=== PATIENT | female | born 1990 | race Caucasian/White ===

== ENCOUNTER 2017-10-28 11:56 | Inpatient (IN) | payer BC ==
[2017-10-28] MEDS ORDERED: Misoprostol 200 MCG Tab PO PRN (12:30)
[2017-10-28] MEDS ORDERED: Lidocaine 1% 50 ML MDV INJECT PRN (12:30)
[2017-10-28] MEDS ORDERED: Methylergonovine 0.2 MG/1 ML Amp IM PRN (12:30)
[2017-10-28] MEDS ORDERED: Sodium Chloride 0.9% 2.5 ML Syringe FLUSH PRN (12:30)
[2017-10-28] MEDS ORDERED: Sodium Chloride 0.9% 10 ML Syringe FLUSH PRN (12:30)
[2017-10-28] MEDS ORDERED: Butorphanol 1 MG/ML SDV IVPUSH PRN (12:30)
[2017-10-28] MEDS ORDERED: Carboprost Tromethamine 250 MCG/1 ML Amp IM PRN (12:30)
[2017-10-28] MEDS ORDERED: Water For Irrigation,Sterile 1,000 ML Container IRR PRN (12:30)
[2017-10-28] MEDS ORDERED: Oxytocin/0.9 % Sodium Chloride 30 UNIT/500 ML BAG IV SCH ×2 (12:30→12:45)
[2017-10-28] MEDS ORDERED: Nalbuphine 10 MG/1 ML Vial IVPUSH PRN (12:30)
[2017-10-28] MEDS ORDERED: Misoprostol 50 MCG (1/2 of 100 MCG) Tab VAG SCH (12:45)
[2017-10-28] MEDS: Lactated Ringers 1,000 ML IV SCH ×2 (13:39→18:57)
[2017-10-28 13:43] LABS: CHLORIDE,CL 108 mmol/L (98-110); SODIUM,NA 137 mmol/L (136-146)
[2017-10-28] MEDS: Misoprostol 25 MCG (1/4 of 100 MCG) Tab VAG SCH ×2 (13:55→18:03)
[2017-10-29] MEDS ORDERED: Ondansetron 4 MG/2 ML SDV IVPUSH PRN (00:04)
[2017-10-29] MEDS ORDERED: Ondansetron 4 MG/2 ML SDV ONE (00:11)
[2017-10-29] MEDS: Lactated Ringers 1,000 ML IV SCH ×5 (01:02→08:42)
[2017-10-29] MEDS ORDERED: Ropivacaine HCl/PF 100 ML ONE (02:12)
[2017-10-29] MEDS ORDERED: fentaNYL 100 MCG/2 ML SDV ONE ×3 (02:12→12:15)
[2017-10-29] MEDS ORDERED: Terbutaline 1 MG/ML SDV ONE (02:54)
[2017-10-29] MEDS ORDERED: Terbutaline 1 MG/ML SDV SUBCUT ONE (02:55)
--- NOTE | 2017-10-29 03:32 | PCM.PREANE ---
Preanesthetic Assessment - Procedure Proposed Procedure: labor epidural - Anesthesia/Transfusion/Family Hx Anesthesia History: Prior Anesthesia Without Reaction Family History of Anesthesia Reaction: No Intubation History: Unknown - Review of Systems General: Other (labor) Pulmonary: No Symptoms Cardiovascular: No Symptoms Gastrointestinal: Other (GERD) Neurological: Other (labor paines) Other: Reports: Anxiety - Physical Assessment NPO Status Date: 10/28/17 NPO Status Time: 07:00 Height: 5 ft 6 in Weight: 155 lb ASA Class: 2 Mental Status: Alert & Oriented x3 Airway Class: Mallampati = 1 Dentition: Reports: Normal Dentition Thyro-Mental Finger Breadths: 3 Mouth Opening Finger Breadths: 3 ROM/Head Extension: Full Lungs: Clear to Auscultation, Normal Respiratory Effort Cardiovascular: Regular Rate, Regular Rhythm, No Murmurs - Lab Values: Laboratory Last Values WBC 10.58 K/uL (4.0-11.0) 10/28/17 13:07 RBC 4.14 M/uL (4.30-5.90) L 10/28/17 13:07 Hgb 12.5 g/dL (12.0-16.0) 10/28/17 13:07 Hct 36.5 % (36.0-46.0) 10/28/17 13:07 MCV 88.2 fL (80.0-98.0) 10/28/17 13:07 MCH 30.2 pg (27.0-32.0) 10/28/17 13:07 MCHC 34.2 g/dL (31.0-37.0) 10/28/17 13:07 RDW Std Deviation 43.7 fl (28.0-62.0) 10/28/17 13:07 RDW Coeff of Sonu 14 % (11.0-15.0) 10/28/17 13:07 Plt Count 265 K/uL (150-400) 10/28/17 13:07 MPV 10.60 fL (7.40-12.00) 10/28/17 13:07 Nucleated RBC % 0.0 /100WBC 10/28/17 13:07 Nucleated RBCs # 0 K/uL 10/28/17 13:07 APTT 25.8 SEC (18.6-31.3) 10/28/17 13:07 Sodium 137 mmol/L (136-146) 10/28/17 13:07 Potassium 3.8 mmol/L (3.5-5.1) 10/28/17 13:07 Chloride 108 mmol/L (98-110) 10/28/17 13:07 Carbon Dioxide 18 mmol/L (21-31) L 10/28/17 13:07 BUN 11 mg/dL (6.0-23.0) 10/28/17 13:07 Creatinine 0.7 mg/dL (0.6-1.5) 10/28/17 13:07 Est Cr Clr Drug Dosing 113.01 mL/min 10/28/17 13:07 Estimated GFR (MDRD) > 60.0 ml/min 10/28/17 13:07 Glucose 77 mg/dL (60-110) 10/28/17 13:07 Uric Acid 5.2 mg/dL (2.1-6.2) 10/28/17 13:07 Calcium 9.6 mg/dL (8.8-10.8) 10/28/17 13:07 Total Bilirubin 0.2 mg/dL (0.1-1.5) 10/28/17 13:07 AST 15 IU/L (5-40) 10/28/17 13:07 ALT 13 IU/L (8-54) 10/28/17 13:07 Alkaline Phosphatase 136 (40-150) 10/28/17 13:07 Total Protein 7.1 g/dL (6.0-8.0) 10/28/17 13:07 Albumin 3.7 g/dL (3.5-5.0) 10/28/17 13:07 Globulin 3.4 g/dL (2.0-3.5) 10/28/17 13:07 Albumin/Globulin Ratio 1.1 (1.3-2.8) L 10/28/17 13:07 Blood Type A POSITIVE 10/28/17 13:07 Antibody Screen NEGATIVE 10/28/17 13:07 - Allergies Allergies/Adverse Reactions: Allergies Allergy/AdvReac Type Severity Reaction Status Date / Time meclocycline Allergy Disorientat Verified 08/01/15 12:13 ion - Blood Blood Available: Yes Product(s) Available: PRBC (T and S) - Acknowledgements Anesthesia Type Planned: Epidural Pt an Appropriate Candidate for the Planned Anesthesia: Yes Alternatives and Risks of Anesthesia Discussed w Pt/Guardian: Yes Pt/Guardian Understands and Agrees with Anesthesia Plan: Yes PreAnesthesia Questionnaire Other Gastrointestinal History: umbilical hernia [employer] History: Reports: Neurological History: Reports: Other (See Below) Other Neuro History: Narcolepsy Dermatologic History: Reports: Other (See Below) Other Dermatologic History: premelanoma 2010 - Past Surgical History Dermatological Surgical History: Reports: Other (See Below) - SUBSTANCE USE Smoking Status *Q: Never Smoker Second Hand Smoke Exposure: No Recreational Drug Use History: No - HOME MEDS Home Medications: Home Meds L.acidoph,Paracasei, B.lactis [Probiotic] 1 each PO DAILY 08/01/15 [History] Norethindrone AC-Eth Estradiol [Junel] 1 each PO DAILY 08/01/15 [History] - CURRENT (IN HOUSE) MEDS Current Meds: Current Medications Butorphanol Tartrate (Stadol) 1 mg IVPUSH Q1H PRN PRN Reason: Pain Last Admin: 10/28/17 23:23 Dose: 1 mg Carboprost Tromethamine (Hemabate Ds) 250 mcg IM ASDIRECTED PRN PRN Reason: Post Hemorrhage Lactated Ringer's (Ringers, Lactated) 1,000 mls @ 150 mls/hr IV ASDIRECTED RIO Last Admin: 10/29/17 03:16 Dose: 999 mls/hr Oxytocin/Sodium Chloride (Oxytocin 30 Unit/500 Ml-Ns) 30 unit in 500 mls @ 500 mls/hr IV TITRATE RIO Oxytocin/Sodium Chloride (Oxytocin 30 Unit/500 Ml-Ns) 30 unit in 500 mls @ 2 mls/hr IV TITRATE RIO; 2 MUNITS/MIN PRN Reason: Protocol Lidocaine HCl (Xylocaine 1%) 50 ml INJECT .ONCE PRN PRN Reason: Laceration repair Methylergonovine Maleate (Methergine) 0.2 mg IM ASDIRECTED PRN PRN Reason: Post Hemorrhage Misoprostol (Cytotec) 200 mcg PO .ONCE PRN PRN Reason: Post Hemorrhage Misoprostol (Cytotec) 25 mcg VAG Q4H RIO Last Admin: 10/28/17 18:03 Dose: 25 mcg Nalbuphine HCl (Nubain) 10 mg IVPUSH Q1H PRN PRN Reason: Pain (severe 7-10) Ondansetron HCl (Zofran) 4 mg IVPUSH Q6H PRN PRN Reason: Nausea/Vomiting Last Admin: 10/29/17 00:15 Dose: 4 mg Sodium Chloride (Saline Flush) 10 ml FLUSH ASDIRECTED PRN PRN Reason: Keep Vein Open Sodium Chloride (Saline Flush) 2.5 ml FLUSH ASDIRECTED PRN PRN Reason: Keep Vein Open Sterile Water (Sterile Water For Irrigation) 1,000 ml IRR ASDIRECTED PRN PRN Reason: delivery Discontinued Medications Fentanyl (Sublimaze) Confirm Administered Dose 100 mcg .ROUTE .STK-MED ONE Stop: 10/29/17 02:13 Ropivacaine (Naropin 0.2%) Confirm Administered Dose 100 mls @ as directed .ROUTE .STK-MED ONE Stop: 10/29/17 02:13 Misoprostol (Cytotec) 25 mcg VAG Q4H RIO Ondansetron HCl (Zofran) Confirm Administered Dose 4 mg .ROUTE .STK-MED ONE Stop: 10/29/17 00:12 Terbutaline Sulfate (Brethine) Confirm Administered Dose 1 mg .ROUTE .STK-MED ONE Stop: 10/29/17 02:55 Terbutaline Sulfate (Brethine) 0.25 mg SUBCUT ONETIME ONE Stop: 10/29/17 02:56 Last Admin: 10/29/17 03:00 Dose: 0.25 mg
[2017-10-29] MEDS ORDERED: ceFAZolin 2 GM in Premix Bag 1 BAG IV ONE (09:31)
[2017-10-29] MEDS ORDERED: Citric Acid/Sodium Citrate Solution 30 ML Cup PO ONE (09:31)
[2017-10-29] MEDS ORDERED: Morphine PF 10 MG/10 ML SDV ONE (09:46)
[2017-10-29] MEDS ORDERED: Phenylephrine/Normal Saline 100 MCG/ML 10 ML Syringe ONE (09:47)
[2017-10-29] MEDS ORDERED: ePHEDrine 50 MG/ML SDV ONE (09:47)
[2017-10-29] MEDS ORDERED: Oxytocin 10 Units/1 ML SDV ONE ×2 (09:50→09:51)
[2017-10-29] MEDS ORDERED: Bupivacaine 0.5% 30 ML SDV ONE (09:53)
[2017-10-29] MEDS ORDERED: Propofol 200 MG/20 ML SDV ONE (10:36)
[2017-10-29] MEDS ORDERED: Methylergonovine 0.2 MG/1 ML Amp ONE (10:45)
[2017-10-29] MEDS ORDERED: Naloxone 0.4 MG/ML Syringe IVPUSH PRN (11:59)
[2017-10-29] MEDS ORDERED: Acetaminophen/oxyCODONE 325-5 MG Tab PO PRN ×2 (12:07→12:20)
--- NOTE | 2017-10-29 12:14 | PCM.POSTAN ---
POST ANESTHESIA ASSESSMENT - MENTAL STATUS Mental Status: Alert, Oriented - VITAL SIGNS Pulse Rate: 120 (consistent with preop records and vitals) SaO2: 98 (RA) Resp Rate: 16 Blood Pressure: 143/80 - RESPIRATORY Respiratory Status: Respiratory Rate WNL, Airway Patent, O2 Saturation Stable - CARDIOVASCULAR CV Status: Pulse Rate WNL, Blood Pressure Stable - GASTROINTESTINAL GI Status: No Symptoms - POST OP HYDRATION Hydration Status: Adequate & Stable
[2017-10-29] MEDS: fentaNYL 100 MCG/2 ML SDV IVPUSH SCH ×2 (12:16→17:14)
--- NOTE | 2017-10-29 12:18 | PCM.OPNOTE ---
- General Post-Op/Procedure Note Date of Surgery/Procedure: 10/29/17 Operative Procedure(s): Primary Lower transverse Findings: Live male delivered at 1039am , 6/9 weight 2990g Pre Op Diagnosis: @ 39w1 d for IOL secondary to Gestational HTN. Cat 2 FHT Post-Op Diagnosis: same Anesthesia Technique: Epidural Primary Surgeon: Miley Red Anesthesia Provider: Jeffrey Menon Fluid Replacement, Intraop: 1,900 Output, Urine Amount: 600 EBL in mLs: 800 Condition: Good
[2017-10-29] MEDS ORDERED: diphenhydrAMINE 50 MG/ML SDV IVPUSH PRN (12:20)
[2017-10-29] MEDS ORDERED: Ondansetron 4 MG/2 ML SDV IV PRN (12:20)
[2017-10-29] MEDS ORDERED: Lanolin 100% Cream 7 GM Tube TOP PRN (12:20)
[2017-10-29] MEDS ORDERED: Bisacodyl 10 MG Supp RECTAL PRN (12:20)
[2017-10-29] MEDS ORDERED: Lactated Ringers 1,000 ML IV SCH (12:30)
[2017-10-29] MEDS: Ketorolac 30 MG/ML SDV IVPUSH SCH ×2 (13:01→19:03)
[2017-10-29] MEDS ORDERED: Witch Hazel Medicated Pads 40/Jar TOP PRN (17:03)
[2017-10-29] MEDS ORDERED: Benzocaine/Menthol 20%-0.5% Spray 78 GM Cannister TOP PRN (17:04)
[2017-10-29] MEDS: Misoprostol 25 MCG (1/4 of 100 MCG) Tab VAG SCH (17:05)
[2017-10-30] MEDS: Ketorolac 30 MG/ML SDV IVPUSH SCH ×3 (00:39→12:26)
--- NOTE | 2017-10-30 08:16 | PCM.PNPP ---
- General Info Date of Service: 10/30/17 Admission Dx/Problem (Free Text): 27 yo P1 s/p Primary LTCS for Cat 2FHT Subjective Update: Patient seen at bedside ,denies any complains, pain control good , [place] out @ 5am this am, Tolerating regular diet Ambulating , yet to void Functional Status: Reports: Pain Controlled, Tolerating Diet, Ambulating, Incentive Spirometry - Review of Systems General: Reports: No Symptoms HEENT: Reports: No Symptoms Pulmonary: Reports: No Symptoms Cardiovascular: Reports: No Symptoms Gastrointestinal: Reports: No Symptoms Genitourinary: Reports: No Symptoms Musculoskeletal: Reports: No Symptoms Skin: Reports: No Symptoms Neurological: Reports: No Symptoms Psychiatric: Reports: No Symptoms - General Info Date of Service: 10/30/17 - Patient Data Vital Signs - Most Recent: Last Vital Signs Temp 36.6 C 10/30/17 05:30 Pulse 94 10/30/17 06:30 Resp 15 10/30/17 06:30 BP 119/69 10/30/17 05:30 Pulse Ox 98 10/30/17 06:30 Weight - Most Recent: 70.307 kg I&O - Last 24 Hours: Intake & Output 10/29/17 10/30/17 10/30/17 22:59 06:59 14:59 Output Total 1100 3050 Balance -1100 -3050 Lab Results - Last 24 Hours: Laboratory Results - last 24 hr 10/30/17 Range/Units 05:51 Hgb 8.4 L (12.0-16.0) g/dL Hct 25.6 L (36.0-46.0) % Med Orders - Current: Current Medications Benzocaine/Menthol (Dermoplast Pain Relief 20%-0.5% [place]) 0 gm TOP ASDIRECTED PRN PRN Reason: Last Admin: 10/29/17 17:13 Dose: 1 canister Bisacodyl (Dulcolax) 10 mg RECTAL .ONCE PRN PRN Reason: Constipation Carboprost Tromethamine (Hemabate Ds) 250 mcg IM ASDIRECTED PRN PRN Reason: Post Hemorrhage Diphenhydramine HCl (Benadryl) 25 mg IVPUSH Q6H PRN PRN Reason: Itching or Nausea Docusate Sodium (Colace) 100 mg PO BID RIO Emollient Ointment (Lansinoh Hpa) 0 gm TOP ASDIRECTED PRN PRN Reason: Sore Nipples Last Admin: 10/29/17 17:14 Dose: 1 tube Fentanyl (Sublimaze) 100 mcg IVPUSH ONETIME [facility] Last Admin: 10/29/17 17:14 Dose: 100 mcg Lactated Ringer's (Ringers, Lactated) 1,000 mls @ 150 mls/hr IV ASDIRECTED [facility] Last Admin: 10/29/17 08:42 Dose: 500 mls/hr Lactated Ringer's (Ringers, Lactated) 1,000 mls @ 125 mls/hr IV ASDIRECTED [facility] Last Admin: 10/29/17 13:07 Dose: 125 mls/hr Ibuprofen (Motrin) 800 mg PO Q8H PRN PRN Reason: mild pain or fever Ketorolac Tromethamine (Toradol) 30 mg IVPUSH Q6H [facility] Stop: 10/30/17 12:31 Last Admin: 10/30/17 06:41 Dose: 30 mg Methylergonovine Maleate (Methergine) 0.2 mg IM ASDIRECTED PRN PRN Reason: Post Hemorrhage Misoprostol (Cytotec) 200 mcg PO .ONCE PRN PRN Reason: Post Hemorrhage Naloxone HCl (Narcan) 0.1 mg IVPUSH ONETIME PRN PRN Reason: Respiratory Depression Stop: 10/30/17 11:59 Ondansetron HCl (Zofran) 4 mg IVPUSH Q6H PRN PRN Reason: Nausea/Vomiting Last Admin: 10/29/17 00:15 Dose: 4 mg Ondansetron HCl (Zofran) 4 mg IV Q4H PRN PRN Reason: Nausea/Vomiting Oxycodone/Acetaminophen (Percocet 325-5 Mg) 1 tab PO Q4H PRN PRN Reason: Breakthrough Pain Oxycodone/Acetaminophen (Percocet 325-5 Mg) 1 tab PO Q4H PRN PRN Reason: Pain (moderate 4-6) Oxycodone/Acetaminophen (Percocet 325-5 Mg) 2 tab PO Q4H PRN PRN Reason: Pain (moderate 4-6) Sodium Chloride (Saline Flush) 10 ml FLUSH ASDIRECTED PRN PRN Reason: Keep Vein Open Sodium Chloride (Saline Flush) 2.5 ml FLUSH ASDIRECTED PRN PRN Reason: Keep Vein Open Lisa Tucker (Tucks) 1 pad TOP ASDIRECTED PRN PRN Reason: Last Admin: 10/29/17 17:13 Dose: 1 tub Discontinued Medications Bupivacaine HCl (Marcaine 0.5%) Confirm Administered Dose 30 ml .ROUTE .STK-MED ONE Stop: 10/29/17 09:54 Butorphanol Tartrate (Stadol) 1 mg IVPUSH Q1H PRN PRN Reason: Pain Last Admin: 10/28/17 23:23 Dose: 1 mg Citric Acid/Sodium Citrate (Bicitra Solution) 30 ml PO ONETIME ONE Stop: 10/29/17 09:32 Last Admin: 10/29/17 09:50 Dose: 30 ml Ephedrine Sulfate (Ephedrine Sulfate) Confirm Administered Dose 50 mg .ROUTE .STK-MED ONE Stop: 10/29/17 09:48 Fentanyl (Sublimaze) Confirm Administered Dose 100 mcg .ROUTE .STK-MED ONE Stop: 10/29/17 02:13 Last Admin: 10/29/17 17:06 Dose: Not Given Fentanyl (Sublimaze) Confirm Administered Dose 100 mcg .ROUTE .STK-MED ONE Stop: 10/29/17 10:42 Fentanyl (Sublimaze) Confirm Administered Dose 100 mcg .ROUTE .STK-MED ONE Stop: 10/29/17 12:16 Last Admin: 10/29/17 17:06 Dose: Not Given Oxytocin/Sodium Chloride (Oxytocin 30 Unit/500 Ml-Ns) 30 unit in 500 mls @ 500 mls/hr IV TITRATE RIO Oxytocin/Sodium Chloride (Oxytocin 30 Unit/500 Ml-Ns) 30 unit in 500 mls @ 2 mls/hr IV TITRATE RIO; 2 MUNITS/MIN PRN Reason: Protocol Ropivacaine (Naropin 0.2%) Confirm Administered Dose 100 mls @ as directed .ROUTE .STK-MED ONE Stop: 10/29/17 02:13 Last Admin: 10/29/17 17:06 Dose: Not Given Cefazolin Sodium/Dextrose 2 gm (/ Premix) 50 mls @ 100 mls/hr IV ONETIME ONE Stop: 10/29/17 10:00 Last Admin: 10/29/17 09:49 Dose: 100 mls/hr Lidocaine HCl (Xylocaine 1%) 50 ml INJECT .ONCE PRN PRN Reason: Laceration repair Methylergonovine Maleate (Methergine) Confirm Administered Dose 0.2 mg .ROUTE .STK-MED ONE Stop: 10/29/17 10:46 Misoprostol (Cytotec) 25 mcg VAG Q4H RIO Misoprostol (Cytotec) 25 mcg VAG Q4H RIO Last Admin: 10/29/17 17:05 Dose: Not Given Morphine Sulfate (Duramorph Pf) Confirm Administered Dose 10 mg .ROUTE .STK-MED ONE Stop: 10/29/17 09:47 Nalbuphine HCl (Nubain) 10 mg IVPUSH Q1H PRN PRN Reason: Itching Ondansetron HCl (Zofran) Confirm Administered Dose 4 mg .ROUTE .STK-MED ONE Stop: 10/29/17 00:12 Last Admin: 10/29/17 17:06 Dose: Not Given Oxytocin (Pitocin) Confirm Administered Dose 10 unit .ROUTE .STK-MED ONE Stop: 10/29/17 09:51 Oxytocin (Pitocin) Confirm Administered Dose 10 unit .ROUTE .STK-MED ONE Stop: 10/29/17 09:52 Phenylephrine HCl (Phenylephrine In Ns 100 Mcg/Ml) Confirm Administered Dose 1 mg .ROUTE .STK-MED ONE Stop: 10/29/17 09:48 Propofol (Diprivan 20 Ml) Confirm Administered Dose 200 mg .ROUTE .STK-MED ONE Stop: 10/29/17 10:37 Sterile Water (Sterile Water For Irrigation) 1,000 ml IRR ASDIRECTED PRN PRN Reason: delivery Terbutaline Sulfate (Brethine) Confirm Administered Dose 1 mg .ROUTE .STK-MED ONE Stop: 10/29/17 02:55 Last Admin: 10/29/17 17:06 Dose: Not Given Terbutaline Sulfate (Brethine) 0.25 mg SUBCUT ONETIME ONE Stop: 10/29/17 02:56 Last Admin: 10/29/17 03:00 Dose: 0.25 mg - Interaction Infant Disposition, : in Room with Family Feeding: Breastfed Infant; Nursed Well - Recovery Exam Fundal Tone: Firm Fundal Level: At Umbilicus Fundal Placement: Midline Lochia Amount: Small Lochia Color: Rubra/Red Perineum Description: Edematous Episiotomy/Laceration: None Bladder Status: Nonpalpable Urinary Elimination: Indwelling Catheter - Exam General: Alert, Oriented Lungs: Clear to Auscultation, Normal Respiratory Effort Cardiovascular: Regular Rate, Regular Rhythm GI/Abdominal Exam: Normal Bowel Sounds Extremities: No Pedal Edema Wound/Incisions: Healing Well - Problem List & Annotations (1) delivery delivered SNOMED Code(s): 344584959 Code(s): O82 - ENCOUNTER FOR DELIVERY WITHOUT INDICATION Status: Acute Current Visit: Yes - Problem List Review Problem List Initiated/Reviewed/Updated: Yes - My Orders Last 24 Hours: My Active Orders 10/29/17 12:20 Notify Provider Vital Signs [RC] ASDIRECTED Acetaminophen/oxyCODONE [Percocet 325-5 MG] 1 tab PO Q4H PRN Acetaminophen/oxyCODONE [Percocet 325-5 MG] 2 tab PO Q4H PRN Bisacodyl [Dulcolax] 10 mg RECTAL .ONCE PRN Lanolin [Lansinoh HPA] See Dose Instructions TOP ASDIRECTED PRN Ondansetron [Zofran] 4 mg IV Q4H PRN diphenhydrAMINE [Benadryl] 25 mg IVPUSH Q6H PRN 10/29/17 12:25 Patient Status [ADT] Routine Ambulate [RC] PER UNIT ROUTINE Antiembolic Devices [RC] PER UNIT ROUTINE Communication Order [RC] PER UNIT ROUTINE RT Incentive Spirometry [RC] Q2HWA Assess Lochia [WOMSER] Per Unit Routine Assess Uterine Involution [WOMSER] Per Unit Routine Breast Pump [WOMSER] Per Unit Routine Peripheral IV Discontinue [OM.PC] Routine Sequential Compression Device [OM.PC] Per Unit Routine 10/29/17 12:30 Ketorolac [Toradol] 30 mg IVPUSH Q6H Lactated Ringers [Ringers, Lactated] 1,000 ml IV ASDIRECTED 10/29/17 12:40 Notify Provider Intake and Out [RC] ASDIRECTED 10/29/17 17:03 Witch Caitlin [Tucks] 1 pad TOP ASDIRECTED PRN 10/29/17 17:04 Benzocaine/Menthol [Dermoplast Pain Relief 20%-0.5% [place]] See Dose Instructions TOP ASDIRECTED PRN 10/29/17 21:00 Docusate Sodium [Colace] 100 mg PO BID 10/29/17 Dinner Regular Diet [DIET] 10/30/17 18:30 Ibuprofen [Motrin] 800 mg PO Q8H PRN - Assessment Assessment:: 27 yo P1 s/p Primary LTCS POD 1 , stable , Minimal lochia , wound c/d/i - Plan Plan:: Pain control as needed Ambulate , Follow void Regular diet
--- NOTE | 2017-10-30 09:45 | PCM48HPAN ---
Post Anesthesia Note - EVALUATION WITHIN 48HRS OF ANESTHETIC Vital Signs in Normal Range: Yes Patient Participated in Evaluation: Yes Respiratory Function Stable: Yes Airway Patent: Yes Cardiovascular Function Stable: Yes Hydration Status Stable: Yes Pain Control Satisfactory: Yes (Used analgesics x2 during the night.) Nausea and Vomiting Control Satisfactory: Yes Mental Status Recovered: Yes
[2017-10-30] MEDS: Acetaminophen/oxyCODONE 325-5 MG Tab PO PRN (15:58)
[2017-10-30] MEDS: Docusate Sodium 100 MG Cap PO SCH ×3 (20:17→21:08)
[2017-10-30] MEDS: Misoprostol 25 MCG (1/4 of 100 MCG) Tab VAG SCH ×2 (20:20→20:21)
--- NOTE | 2017-10-30 21:52 | OR ---
DATE OF PROCEDURE: 10/29/2017 SURGEON:ROBERTA PAULINO PREOPERATIVE DIAGNOSIS: A 27-year-old, G1, P0, at 39 weeks 0 days by dates on 19, was admitted secondary to gestational hypertension. Persistent Cat 2FHT POST OPERATIVE DIAGNOSIS: 39w0d , Primary section for Cat 2FHT PROCEDURE: Primary Lower transverse FINDINGS: Live male delivered at 10:39 a.m. score was 6 and 9. Weight is 2990 g. 3VC IV FLUIDS: 1900. ESTIMATED BLOOD LOSS: 800. URINE OUTPUT: 600. INDICATION: She was 27-year-old, G1, P0, was 39 weeks 0 days. She was initially seen in the clinic 2 days ago, was found to have borderline blood pressures in the 130s over 80s. The patient was returned back to the hospital and to the clinic in 2 days and she had a blood pressure of 150/86. At this time, she had no headache or right upper quadrant pain. No blurring of vision. Based on the elevated blood pressure, the patient was counseled for induction of labor. The patient accepted for induction of labor and signed consent. Induction of labor was started with Cytotec. The patient received 2 doses of Cytotec and became 130, - 3. After Cytotec, the patient had CRB placed on traction, which came out at 4:08 a.m. After CRB, the patient was noted to be 4 cm dilated and artificial rupture of membrane was also done. An IUPC was placed with amnioinfusion started because the patient was noted to have variable decelerations to the 70s. Also, the patient was noted to have tachysystole and then had deep variable decelerations, and at this point, terbutaline was given. During the course, the patient was noted to have recurrent late decelerations. At this point, the patient was placed on left lateral position, oxygen was given. The patient still continued to have late decelerations, which was persistent. As a result of this, the patient was given the option for section for maternal and well being. The patient accepted and signed consent. DESCRIPTION OF PROCEDURE: The patient was taken to the operating room where she was placed in the dorsal supine position with a leftward tilt. The epidural anesthesia was topped off. A Pfannenstiel skin incision was made with a scalpel and carried down to the fascia with the Bovie. The fascia was incised and extended laterally with the the Burnett scissors and pickup with teeth. The fascia was grasped superiorly with a Prince clamp and dissected from the rectus muscle superiorly and inferiorly. The rectus muscle was down in the midline to the level of the pubic symphysis. The abdomen was entered in bluntly and to expose the bladder reflection, then the Abdirizak retractor was placed to help to retract. The bladder flap was created and the lower uterine incision was made, which was extended upwards and downwards. The head was elevated to the level of the incision and then with fundal pressure the head was delivered followed by the anterior and posterior shoulder. The cord was clamped and cut. The was handed over to the awaiting furnace installer. The placenta was then delivered with massage of the uterine fundus. The uterus was then cleaned with laparotomy sponges. The uterine incision was repaired in 2 layers. there was a slight extension in the left side, which was then repaired also with the uterine incision.Hemostasis was noted after the procedure. The peritoneum was closed. The fascia was also closed. The skin was closed with 3-0 Monocryl on a Abdirashid needle. All instruments and pad counts were correct x2. The patient was taken to the recovery room in stable condition. MICHAEL DELUCA /[id number]
[2017-10-31] MEDS: Ibuprofen 800 MG Tab PO PRN ×3 (01:21→19:56)
--- NOTE | 2017-10-31 05:33 | PCM.PNPP ---
- General Info Date of Service: 10/31/17 Admission Dx/Problem (Free Text): 27 yo P1 s/p Primary LTCS for Cat 2FHT , POD 2 Subjective Update: Patient seen at bedside ,denies any complains, pain control good ,voiding, Tolerating regular diet Ambulating , Functional Status: Reports: Pain Controlled, Tolerating Diet, Ambulating, Urinating - Review of Systems General: Reports: No Symptoms HEENT: Reports: No Symptoms Pulmonary: Reports: No Symptoms Cardiovascular: Reports: Orthopnea Gastrointestinal: Reports: No Symptoms Genitourinary: Reports: No Symptoms Musculoskeletal: Reports: No Symptoms Skin: Reports: No Symptoms Neurological: Reports: No Symptoms - General Info Date of Service: 10/31/17 - Patient Data Vital Signs - Most Recent: Last Vital Signs Temp 36.9 C 10/30/17 20:00 Pulse 108 H 10/30/17 20:00 Resp 18 10/30/17 20:00 BP 109/58 L 10/30/17 20:00 Pulse Ox 96 10/30/17 20:00 Weight - Most Recent: 70.307 kg Lab Results - Last 24 Hours: Laboratory Results - last 24 hr 10/30/17 Range/Units 05:51 Hgb 8.4 L (12.0-16.0) g/dL Hct 25.6 L (36.0-46.0) % Med Orders - Current: Current Medications Benzocaine/Menthol (Dermoplast Pain Relief 20%-0.5% [place]) 0 gm TOP ASDIRECTED PRN PRN Reason: Last Admin: 10/29/17 17:13 Dose: 1 canister Bisacodyl (Dulcolax) 10 mg RECTAL .ONCE PRN PRN Reason: Constipation Carboprost Tromethamine (Hemabate Ds) 250 mcg IM ASDIRECTED PRN PRN Reason: Post Hemorrhage Diphenhydramine HCl (Benadryl) 25 mg IVPUSH Q6H PRN PRN Reason: Itching or Nausea Docusate Sodium (Colace) 100 mg PO BID RIO Last Admin: 10/30/17 21:08 Dose: 100 mg Emollient Ointment (Lansinoh Hpa) 0 gm TOP ASDIRECTED PRN PRN Reason: Sore Nipples Last Admin: 10/29/17 17:14 Dose: 1 tube Fentanyl (Sublimaze) 100 mcg IVPUSH ONETIME RIO Last Admin: 10/29/17 17:14 Dose: 100 mcg Lactated Ringer's (Ringers, Lactated) 1,000 mls @ 150 mls/hr IV ASDIRECTED RIO Last Admin: 10/29/17 08:42 Dose: 500 mls/hr Lactated Ringer's (Ringers, Lactated) 1,000 mls @ 125 mls/hr IV ASDIRECTED [facility] Last Admin: 10/29/17 13:07 Dose: 125 mls/hr Ibuprofen (Motrin) 800 mg PO Q8H PRN PRN Reason: mild pain or fever Last Admin: 10/31/17 01:21 Dose: 800 mg Methylergonovine Maleate (Methergine) 0.2 mg IM ASDIRECTED PRN PRN Reason: Post Hemorrhage Misoprostol (Cytotec) 200 mcg PO .ONCE PRN PRN Reason: Post Hemorrhage Ondansetron HCl (Zofran) 4 mg IVPUSH Q6H PRN PRN Reason: Nausea/Vomiting Last Admin: 10/29/17 00:15 Dose: 4 mg Ondansetron HCl (Zofran) 4 mg IV Q4H PRN PRN Reason: Nausea/Vomiting Oxycodone/Acetaminophen (Percocet 325-5 Mg) 1 tab PO Q4H PRN PRN Reason: Breakthrough Pain Oxycodone/Acetaminophen (Percocet 325-5 Mg) 1 tab PO Q4H PRN PRN Reason: Pain (moderate 4-6) Last Admin: 10/30/17 15:58 Dose: 1 tab Oxycodone/Acetaminophen (Percocet 325-5 Mg) 2 tab PO Q4H PRN PRN Reason: Pain (moderate 4-6) Last Admin: 10/30/17 18:45 Dose: 2 tab Sodium Chloride (Saline Flush) 10 ml FLUSH ASDIRECTED PRN PRN Reason: Keep Vein Open Sodium Chloride (Saline Flush) 2.5 ml FLUSH ASDIRECTED PRN PRN Reason: Keep Vein Open Witch Caitlin (Tucks) 1 pad TOP ASDIRECTED PRN PRN Reason: Last Admin: 10/29/17 17:13 Dose: 1 tub Discontinued Medications Bupivacaine HCl (Marcaine 0.5%) Confirm Administered Dose 30 ml .ROUTE .[facility] ONE Stop: 10/29/17 09:54 Butorphanol Tartrate (Stadol) 1 mg IVPUSH Q1H PRN PRN Reason: Pain Last Admin: 10/28/17 23:23 Dose: 1 mg Citric Acid/Sodium Citrate (Bicitra Solution) 30 ml PO ONETIME ONE Stop: 10/29/17 09:32 Last Admin: 10/29/17 09:50 Dose: 30 ml Ephedrine Sulfate (Ephedrine Sulfate) Confirm Administered Dose 50 mg .ROUTE .STK-MED ONE Stop: 10/29/17 09:48 Fentanyl (Sublimaze) Confirm Administered Dose 100 mcg .ROUTE .STK-MED ONE Stop: 10/29/17 02:13 Last Admin: 10/29/17 17:06 Dose: Not Given Fentanyl (Sublimaze) Confirm Administered Dose 100 mcg .ROUTE .STK-MED ONE Stop: 10/29/17 10:42 Fentanyl (Sublimaze) Confirm Administered Dose 100 mcg .ROUTE .STK-MED ONE Stop: 10/29/17 12:16 Last Admin: 10/29/17 17:06 Dose: Not Given Oxytocin/Sodium Chloride (Oxytocin 30 Unit/500 Ml-Ns) 30 unit in 500 mls @ 500 mls/hr IV TITRATE RIO Oxytocin/Sodium Chloride (Oxytocin 30 Unit/500 Ml-Ns) 30 unit in 500 mls @ 2 mls/hr IV TITRATE RIO; 2 MUNITS/MIN PRN Reason: Protocol Ropivacaine (Naropin 0.2%) Confirm Administered Dose 100 mls @ as directed .ROUTE .STK-MED ONE Stop: 10/29/17 02:13 Last Admin: 10/29/17 17:06 Dose: Not Given Cefazolin Sodium/Dextrose 2 gm (/ Premix) 50 mls @ 100 mls/hr IV ONETIME ONE Stop: 10/29/17 10:00 Last Admin: 10/29/17 09:49 Dose: 100 mls/hr Ketorolac Tromethamine (Toradol) 30 mg IVPUSH Q6H RIO Stop: 10/30/17 12:31 Last Admin: 10/30/17 12:26 Dose: 30 mg Lidocaine HCl (Xylocaine 1%) 50 ml INJECT .ONCE PRN PRN Reason: Laceration repair Methylergonovine Maleate (Methergine) Confirm Administered Dose 0.2 mg .ROUTE .STK-MED ONE Stop: 10/29/17 10:46 Misoprostol (Cytotec) 25 mcg VAG Q4H RIO Misoprostol (Cytotec) 25 mcg VAG Q4H RIO Last Admin: 10/30/17 20:21 Dose: Not Given Morphine Sulfate (Duramorph Pf) Confirm Administered Dose 10 mg .ROUTE .STK-MED ONE Stop: 10/29/17 09:47 Nalbuphine HCl (Nubain) 10 mg IVPUSH Q1H PRN PRN Reason: Itching Naloxone HCl (Narcan) 0.1 mg IVPUSH ONETIME PRN PRN Reason: Respiratory Depression Stop: 10/30/17 11:59 Ondansetron HCl (Zofran) Confirm Administered Dose 4 mg .ROUTE .STK-MED ONE Stop: 10/29/17 00:12 Last Admin: 10/29/17 17:06 Dose: Not Given Oxytocin (Pitocin) Confirm Administered Dose 10 unit .ROUTE .STK-MED ONE Stop: 10/29/17 09:51 Oxytocin (Pitocin) Confirm Administered Dose 10 unit .ROUTE .STK-MED ONE Stop: 10/29/17 09:52 Phenylephrine HCl (Phenylephrine In Ns 100 Mcg/Ml) Confirm Administered Dose 1 mg .ROUTE .STK-MED ONE Stop: 10/29/17 09:48 Propofol (Diprivan 20 Ml) Confirm Administered Dose 200 mg .ROUTE .STK-MED ONE Stop: 10/29/17 10:37 Sterile Water (Sterile Water For Irrigation) 1,000 ml IRR ASDIRECTED PRN PRN Reason: delivery Terbutaline Sulfate (Brethine) Confirm Administered Dose 1 mg .ROUTE .STK-MED ONE Stop: 10/29/17 02:55 Last Admin: 10/29/17 17:06 Dose: Not Given Terbutaline Sulfate (Brethine) 0.25 mg SUBCUT ONETIME ONE Stop: 10/29/17 02:56 Last Admin: 10/29/17 03:00 Dose: 0.25 mg - Interaction Infant Disposition, : [place] in Room with Family Infant Feeding: Breastfed Infant; Nursed Well - Recovery Exam Fundal Tone: Firm Fundal Level: 1 Fingerbreadths Below Umbilicus Fundal Placement: Midline Lochia Amount: Scant Lochia Color: Rubra/Red Perineum Description: Edematous Episiotomy/Laceration: None Bladder Status: Voiding Urinary Elimination: Voided Other Urinary Elimination, : Awaiting first void following removal of indwelling catheter - Exam General: Alert HEENT: Pupils Equal, Pupils Reactive Lungs: Clear to Auscultation, Normal Respiratory Effort Cardiovascular: Regular Rate, Regular Rhythm GI/Abdominal Exam: Normal Bowel Sounds, Soft, Non-Tender Extremities: Normal Inspection Skin: Warm Psy/Mental Status: Alert, Normal Affect - Problem List & Annotations (1) delivery delivered SNOMED Code(s): 447953181 Code(s): O82 - ENCOUNTER FOR DELIVERY WITHOUT INDICATION Status: Acute Current Visit: Yes - Problem List Review Problem List Initiated/Reviewed/Updated: Yes - My Orders Last 24 Hours: My Active Orders 10/30/17 18:30 Ibuprofen [Motrin] 800 mg PO Q8H PRN 10/31/17 05:30 Ready for Discharge [RC] PER UNIT ROUTINE - Assessment Assessment:: 27 yo P1 s/p Primary LTCS POD 2 , stable , Minimal lochia , wound c/d/i - Plan Plan:: Discharge home today
[2017-10-31] MEDS: Docusate Sodium 100 MG Cap PO SCH ×2 (08:22→23:49)
[2017-10-31] MEDS: Acetaminophen/oxyCODONE 325-5 MG Tab PO PRN ×2 (08:23→14:22)
[2017-11-01] MEDS: Ibuprofen 800 MG Tab PO PRN (03:50)
--- NOTE | 2017-11-01 08:23 | PCM.PNPP ---
- General Info Date of Service: 11/01/17 Admission Dx/Problem (Free Text): 27 yo P1 s/p Primary LTCS for Cat 2FHT , POD 3 Subjective Update: Patient seen at bedside ,denies any complains, pain control good ,voiding, Tolerating regular diet Ambulating , Functional Status: Reports: Pain Controlled, Tolerating Diet, Ambulating, Urinating - Review of Systems General: Reports: No Symptoms HEENT: Reports: No Symptoms Pulmonary: Reports: No Symptoms Cardiovascular: Reports: No Symptoms Gastrointestinal: Reports: No Symptoms Genitourinary: Reports: No Symptoms Musculoskeletal: Reports: No Symptoms Skin: Reports: No Symptoms Neurological: Reports: No Symptoms Psychiatric: Reports: No Symptoms - General Info Date of Service: 11/01/17 - Patient Data Vital Signs - Most Recent: Last Vital Signs Temp 36.9 C 11/01/17 04:00 Pulse 94 11/01/17 04:00 Resp 18 11/01/17 04:00 BP 119/80 11/01/17 04:00 Pulse Ox 97 11/01/17 04:00 Weight - Most Recent: 70.307 kg Med Orders - Current: Current Medications Benzocaine/Menthol (Dermoplast Pain Relief 20%-0.5% [place]) 0 gm TOP ASDIRECTED PRN PRN Reason: Last Admin: 10/29/17 17:13 Dose: 1 canister Bisacodyl (Dulcolax) 10 mg RECTAL .ONCE PRN PRN Reason: Constipation Carboprost Tromethamine (Hemabate Ds) 250 mcg IM ASDIRECTED PRN PRN Reason: Post Hemorrhage Diphenhydramine HCl (Benadryl) 25 mg IVPUSH Q6H PRN PRN Reason: Itching or Nausea Docusate Sodium (Colace) 100 mg PO BID ON LICENSE OF [facility] Last Admin: 10/31/17 23:49 Dose: 100 mg Emollient Ointment (Lansinoh Hpa) 0 gm TOP ASDIRECTED PRN PRN Reason: Sore Nipples Last Admin: 10/29/17 17:14 Dose: 1 tube Fentanyl (Sublimaze) 100 mcg IVPUSH ONETIME ON LICENSE OF [facility] Last Admin: 10/29/17 17:14 Dose: 100 mcg Lactated Ringer's (Ringers, Lactated) 1,000 mls @ 150 mls/hr IV ASDIRECTED ON LICENSE OF [facility] Last Admin: 10/29/17 08:42 Dose: 500 mls/hr Lactated Ringer's (Ringers, Lactated) 1,000 mls @ 125 mls/hr IV ASDIRECTED ON LICENSE OF [facility] Last Admin: 10/29/17 13:07 Dose: 125 mls/hr Ibuprofen (Motrin) 800 mg PO Q8H PRN PRN Reason: mild pain or fever Last Admin: 11/01/17 03:50 Dose: 800 mg Methylergonovine Maleate (Methergine) 0.2 mg IM ASDIRECTED PRN PRN Reason: Post Hemorrhage Misoprostol (Cytotec) 200 mcg PO .ONCE PRN PRN Reason: Post Hemorrhage Ondansetron HCl (Zofran) 4 mg IVPUSH Q6H PRN PRN Reason: Nausea/Vomiting Last Admin: 10/29/17 00:15 Dose: 4 mg Ondansetron HCl (Zofran) 4 mg IV Q4H PRN PRN Reason: Nausea/Vomiting Oxycodone/Acetaminophen (Percocet 325-5 Mg) 1 tab PO Q4H PRN PRN Reason: Breakthrough Pain Last Admin: 10/31/17 23:46 Dose: 1 tab Oxycodone/Acetaminophen (Percocet 325-5 Mg) 1 tab PO Q4H PRN PRN Reason: Pain (moderate 4-6) Last Admin: 10/31/17 14:22 Dose: 1 tab Oxycodone/Acetaminophen (Percocet 325-5 Mg) 2 tab PO Q4H PRN PRN Reason: Pain (moderate 4-6) Last Admin: 10/30/17 18:45 Dose: 2 tab Sodium Chloride (Saline Flush) 10 ml FLUSH ASDIRECTED PRN PRN Reason: Keep Vein Open Sodium Chloride (Saline Flush) 2.5 ml FLUSH ASDIRECTED PRN PRN Reason: Keep Vein Open Witch Caitlin (Tucks) 1 pad TOP ASDIRECTED PRN PRN Reason: Last Admin: 10/29/17 17:13 Dose: 1 tub Discontinued Medications Bupivacaine HCl (Marcaine 0.5%) Confirm Administered Dose 30 ml .ROUTE .STK-MED ONE Stop: 10/29/17 09:54 Butorphanol Tartrate (Stadol) 1 mg IVPUSH Q1H PRN PRN Reason: Pain Last Admin: 10/28/17 23:23 Dose: 1 mg Citric Acid/Sodium Citrate (Bicitra Solution) 30 ml PO ONETIME ONE Stop: 10/29/17 09:32 Last Admin: 10/29/17 09:50 Dose: 30 ml Ephedrine Sulfate (Ephedrine Sulfate) Confirm Administered Dose 50 mg .ROUTE .STK-MED ONE Stop: 10/29/17 09:48 Fentanyl (Sublimaze) Confirm Administered Dose 100 mcg .ROUTE .STK-MED ONE Stop: 10/29/17 02:13 Last Admin: 10/29/17 17:06 Dose: Not Given Fentanyl (Sublimaze) Confirm Administered Dose 100 mcg .ROUTE .STK-MED ONE Stop: 10/29/17 10:42 Fentanyl (Sublimaze) Confirm Administered Dose 100 mcg .ROUTE .STK-MED ONE Stop: 10/29/17 12:16 Last Admin: 10/29/17 17:06 Dose: Not Given Oxytocin/Sodium Chloride (Oxytocin 30 Unit/500 Ml-Ns) 30 unit in 500 mls @ 500 mls/hr IV TITRATE RIO Oxytocin/Sodium Chloride (Oxytocin 30 Unit/500 Ml-Ns) 30 unit in 500 mls @ 2 mls/hr IV TITRATE RIO; 2 MUNITS/MIN PRN Reason: Protocol Ropivacaine (Naropin 0.2%) Confirm Administered Dose 100 mls @ as directed .ROUTE .STK-MED ONE Stop: 10/29/17 02:13 Last Admin: 10/29/17 17:06 Dose: Not Given Cefazolin Sodium/Dextrose 2 gm (/ Premix) 50 mls @ 100 mls/hr IV ONETIME ONE Stop: 10/29/17 10:00 Last Admin: 10/29/17 09:49 Dose: 100 mls/hr Ketorolac Tromethamine (Toradol) 30 mg IVPUSH Q6H RIO Stop: 10/30/17 12:31 Last Admin: 10/30/17 12:26 Dose: 30 mg Lidocaine HCl (Xylocaine 1%) 50 ml INJECT .ONCE PRN PRN Reason: Laceration repair Methylergonovine Maleate (Methergine) Confirm Administered Dose 0.2 mg .ROUTE .STK-MED ONE Stop: 10/29/17 10:46 Misoprostol (Cytotec) 25 mcg VAG Q4H RIO Misoprostol (Cytotec) 25 mcg VAG Q4H RIO Last Admin: 10/30/17 20:21 Dose: Not Given Morphine Sulfate (Duramorph Pf) Confirm Administered Dose 10 mg .ROUTE .STK-MED ONE Stop: 10/29/17 09:47 Nalbuphine HCl (Nubain) 10 mg IVPUSH Q1H PRN PRN Reason: Itching Naloxone HCl (Narcan) 0.1 mg IVPUSH ONETIME PRN PRN Reason: Respiratory Depression Stop: 10/30/17 11:59 Ondansetron HCl (Zofran) Confirm Administered Dose 4 mg .ROUTE .STK-MED ONE Stop: 10/29/17 00:12 Last Admin: 10/29/17 17:06 Dose: Not Given Oxytocin (Pitocin) Confirm Administered Dose 10 unit .ROUTE .STK-MED ONE Stop: 10/29/17 09:51 Oxytocin (Pitocin) Confirm Administered Dose 10 unit .ROUTE .STK-MED ONE Stop: 10/29/17 09:52 Phenylephrine HCl (Phenylephrine In Ns 100 Mcg/Ml) Confirm Administered Dose 1 mg .ROUTE .STK-MED ONE Stop: 10/29/17 09:48 Propofol (Diprivan 20 Ml) Confirm Administered Dose 200 mg .ROUTE .STK-MED ONE Stop: 10/29/17 10:37 Sterile Water (Sterile Water For Irrigation) 1,000 ml IRR ASDIRECTED PRN PRN Reason: delivery Terbutaline Sulfate (Brethine) Confirm Administered Dose 1 mg .ROUTE .STK-MED ONE Stop: 10/29/17 02:55 Last Admin: 10/29/17 17:06 Dose: Not Given Terbutaline Sulfate (Brethine) 0.25 mg SUBCUT ONETIME ONE Stop: 10/29/17 02:56 Last Admin: 10/29/17 03:00 Dose: 0.25 mg - Interaction Disposition, : in Room with Family Feeding: Breastfed Infant; Nursed Well - Recovery Exam Fundal Tone: Firm Fundal Level: 2 Fingerbreadths Below Umbilicus Fundal Placement: Midline Lochia Amount: Scant Lochia Color: Rubra/Red Perineum Description: Intact, Minimal Bruising/Swelling Episiotomy/Laceration: None Bladder Status: Voiding Urinary Elimination: Voided Other Urinary Elimination, : Awaiting first void following removal of indwelling catheter - Exam General: Alert Lungs: Clear to Auscultation, Normal Respiratory Effort Cardiovascular: Regular Rate, Regular Rhythm GI/Abdominal Exam: Normal Bowel Sounds Extremities: Normal Inspection Wound/Incisions: Dressing Dry and Intact Psy/Mental Status: Alert - Problem List & Annotations (1) delivery delivered SNOMED Code(s): 833063273 Code(s): O82 - ENCOUNTER FOR DELIVERY WITHOUT INDICATION Status: Acute Current Visit: Yes - Problem List Review Problem List Initiated/Reviewed/Updated: Yes - Assessment Assessment:: 27 yo P1 s/p Primary LTCS POD 3 , stable , Minimal lochia , wound c/d/i - Plan Plan:: Discharge home today
[2017-11-01] MEDS: Docusate Sodium 100 MG Cap PO SCH (08:41)
[2017-11-01 09:32] VITALS: BP 116/79
== END 2017-11-01 13:15 | disposition home or self-care (01) | DRG 540 ==
LOC: MW.OBCHECK 11:56 → MW.OB 12:05 → OBSVTOIN 10-29 11:08 → MW.OB 10-29 11:08 → MW.OBCHECK 10-29 11:08 → MW.OB 10-29 16:46
PROVIDERS: ADMIT Obstetrics & Gynecology; ATTEND Obstetrics & Gynecology
PROC: 10D00Z1 Extraction of Products of Conception, Low, Open Approach (ICD-10-PCS; principal; 2017-10-29)
PROC: 3E0P7VZ Introduction of Hormone into Female Reproductive, Via Natural or Artificial Opening (ICD-10-PCS; 2017-10-29)
PROC: 10907ZC Drainage of Amniotic Fluid, Therapeutic from Products of Conception, Via Natural or Artificial Opening (ICD-10-PCS; 2017-10-29)
DX: O13.4 Gestational [pregnancy-induced] hypertension without significant proteinuria, complicating childbirth (principal); Z3A.39 39 weeks gestation of pregnancy; Z37.0 Single live birth
CPT/HCPCS: 01967; 01968; 36415; 59025; 59200; 80053; 84550; 85014; 85018; 85027; 85730; 86850; 86900; 86901; A9270-GY; J0595; J0690; J1885; J2210; J2270; J2405; J2590; J2704; J3010; J3105; J7120